=== PATIENT | male | born 1985 | race Caucasian/White ===

== ENCOUNTER 2024-04-01 15:44 | Emergency (ER) | payer OTHER, SELFPAY ==
[2024-04-01 15:50] VITALS: BP 171/99
[2024-04-01 16:17] LABS: % Basophils 0.7 % (0-2); % Eosinophils 0.7 % (0-6); % Immature Granulocytes 0.4 % (0-0.5); % Lymphocytes 26.9 % (20.5-51.1); % Monocytes 8.4 % (1.7-9.3); % Neutrophils 62.9 % (42.2-75.2); Absolute Basophils 0.1 10^3/uL (0-0.2); Absolute Eosinophils 0.1 10^3/uL (0-0.7); Absolute Lymphocytes 1.9 10^3/uL (1.2-3.4); Absolute Monocytes 0.6 10^3/uL (0.1-0.6); Absolute Neutrophils 4.5 10^3/uL (1.4-6.5); Hematocrit 38.3 % (39.0-52.0); Hemoglobin 14.1 g/dL (13.0-18.0); Mean Corp Hgb Conc. 36.8 g/dL (33.0-37.0); Mean Corpuscular Hgb 31.6 pg (27.0-31.0); Mean Corpuscular Volume 85.9 fL (80.0-94.0); Mean Platelet Volume 9.9 fL (7.4-10.4); Nucleated Red Blood Cells % 0 % (-); Platelet Count 294 10^3/uL (130-400); Red Blood Cell Count 4.46 10^6/uL (4.70-6.10); Red Cell Dist. Width 12.5 % (11.5-14.5); White Blood Cell Count 7.2 10^3/uL (4.8-10.8)
[2024-04-01 16:31] LABS: ALT (SGPT) 27 U/L (0-50); AST (SGOT) 29 U/L (17-59); Albumin 4.9 g/dl (3.5-5.0); Alkaline Phosphatase 50 U/L (38-126); Blood Urea Nitrogen 15 mg/dl (9-20); Carbon Dioxide 25 mmol/L (22-30); Chloride 104 mmol/L (98-107); Glucose 90 mg/dl (70-99); Sodium 137 mmol/L (135-145); Total Bilirubin 0.9 mg/dl (0.2-1.3); Total Protein 7.6 g/dl (6.3-8.2); eGFR > 60.00
[2024-04-01 16:40] LABS: NT-proBNP 57.3 pg/ml; Troponin I < 0.012 ng/ml
--- NOTE | 2024-04-01 18:44 | ED.GENMED ---
History of Present Illness
General
Chief Complaint: Breathing Problem
Time Seen by Provider: 04/01/24 18:22
Travel History
Have you had any contact with someone who has COVID-19?: No
Do you have any symptoms of coronavirus? Fever > 100 degrees, chills, cough, shortness of breath, sore throat, loss of taste or smell, muscle aches, or headache?: No
History of Present Illness
History of Present Illness:
39-year-old male presents to the emergency department for evaluation of shortness of breath and chest tightness has been ongoing for the past 3 weeks but worsening the past 2 to 3 days. He feels there is something 'catching' when he attempts to
take a deep inspiration. Denies any fever, chills, sweats, coughing, chest pain at rest, exertional chest pain, nausea, vomiting, or back pain. No recent prolonged travel/immobilization or surgeries. No history of DVT/PE. No recent upper
respiratory tract illnesses
Review of Systems
Review of Systems
Allergies reviewed?: Yes
All Other Systems: ROS reviewed and negative except as documented in HPI and ROS
Phy Exam
Physical Exam
Physical Exam:
GEN: Well appearing, NAD, WDWN
Eyes: PERRLA, EOMs intact, no scleral icterus
HENT: NCAT, oral mucosa moist
Lungs: CTAB, no wheezes, rales, rhonchi, normal chest wall excursion
Cardiac: RRR, no M/R/G, no peripheral edema. Radial pulses 2+ bilat
Neuro: AO x 3
MSK: No gross deformity or ecchymosis. No edema. No digital clubbing
Skin: No rashes, petechiae. Normal color, no pallor or jaundice.
Psych: Calm, cooperative, proper hygiene
Course
Orders/Labs/Results
Orders:
Orders
04/01/24 15:54
ECG [Electrocardiogram (*1)] Urgent
Reason for Study: Shortness of Breath
EKG- Treatment ONCE
CR Chest - 2 Views Urgent
Comment:
Reason For Exam: SOB
04/01/24 16:12
Complete Blood Count/With Diff Urgent
Comprehensive Metabolic Panel Urgent
NT-proBNP Urgent
Troponin I Urgent
Abnormal Lab Results
04/01/24
16:12
RBC 4.46 L 10^6/uL
(4.70-6.10)
Hct 38.3 L %
(39.0-52.0)
MCH 31.6 H pg
(27.0-31.0)
04/01/24 16:12
04/01/24 16:12
Vital Signs
Initial and Last Documented VS:
Initial Vital Signs
Temp Pulse Resp BP Pulse Ox
98.2 F 77 18 171/99 97
04/01/24 15:50 04/01/24 15:50 04/01/24 15:50 04/01/24 15:50 04/01/24 15:50
Last Documented Vital Signs
Temp Pulse Resp BP Pulse Ox
98.2 F 80 18 138/100 97
04/01/24 15:50 04/01/24 19:30 04/01/24 19:30 04/01/24 19:30 04/01/24 19:30
MDM/Problems Addressed
MDM/Problems Addressed:
Patient's workup is grossly benign. EKG and negative troponin coupled with young age reassuring against ACS. No risk factors or vital sign abnormalities concerning for PE. Chest x-ray is clear with no evidence for infectious etiology. Certainly
could represent an inflammatory etiology and will trial a course of NSAIDs
Comment
Comment:
EKG independently interpreted by me shows normal sinus rhythm at a rate of [address] changes concerning for ischemia
*Critical Care Note
Total Time (30-74mins, 75-104mins- exclusive of procedures): Not Applicable
ED Attending Note
-
Portions of this chart may have been created with voice recognition software.� Occasional wrong word or��sound alike� substitutions may have occurred due to the inherent limitations of voice recognition software.
Discharge Plan
Departure
Patient Disposition: Home (Routine Discharge)
Date of Disposition: 04/01/24
Time of Disposition: 19:20
Patient with high blood pressure during this ER visit?: Yes
Discharge Problem:
Atypical chest pain
Instructions: Chest Pain (DC)
Prescriptions:
New
diclofenac sodium 75 mg tablet,delayed release (DR/EC)
75 mg PO BID Qty: 20 0RF
Referrals:
Boone Cleary MD [Family Provider] -
Activity Restrictions/Additional Instructions:
Your chest x ray shows no abnormalities
Your lab work is normal, and your EKG is normal.
The cause of your symptoms is not clear. This could be an inflammatory syndrome and we will treat you with an anti inflammatory medicine for 7-10 days
There is nothing on your workup that would suggest a heart issue, blood clot in your lungs, or a lung infection
Please note your blood pressure was elevated today, and this should be rechecked in 1-2 weeks by your primary doctor
Interventions
Interventions:
*Risk Screen - Suicide Last Done: 04/01/24 15:50
*General Assessment Last Done: 04/01/24 15:50
*Neglect/Abuse Screening Last Done: 04/01/24 15:50
ED- Fall Risk Assessment Last Done: 04/01/24 19:30
*Nursing Disposition Last Done: 04/01/24 19:32
ED- Cardiac Assessment Last Done: 04/01/24 19:30
ED- Pulmonary Assessment Last Done: 04/01/24 19:30
Discharge Date and Time
Discharge Date/Time: 04/01/24 19:33
Print Language: JAPANESE
[2024-04-01 19:30] VITALS: BP 138/100
== END 2024-04-01 19:33 | disposition home or self-care (01) ==
LOC: EMR 15:44
PROVIDERS: EMERGENCY PHYSICIAN Student in an Organized Health Care Education/Training Program; FAMILY PHYSICIAN Family Medicine
DX: R07.89 Other chest pain (principal); R06.02 Shortness of breath
CPT/HCPCS: 99283; 71046; 80053; 83880; 84484; 85025; 93005

== ENCOUNTER → 2024-06-05 07:56 | Outpatient (REF) | payer OTHER, SELFPAY | LOC: RAD 07:56 | PROVIDERS: ATTENDING PHYSICIAN Family Medicine | DX: E06.3 Autoimmune thyroiditis (principal); R09.A2 Foreign body sensation, throat | CPT/HCPCS: 76536 ==

== ENCOUNTER → 2025-04-05 06:30 | Outpatient (REF) | payer OTHER, SELFPAY | LOC: HWRAD 06:30 | PROVIDERS: ATTENDING PHYSICIAN Nurse Practitioner Family | DX: M25.511 Pain in right shoulder (principal) | CPT/HCPCS: 73030 ==